=== PATIENT | female | born 1970 | race Native Hawaiian/Other Pacific Islander ===

== ENCOUNTER 2022-09-23 22:30 | Emergency (ER) | payer OTHER ==
[~2022-09-23] VITALS: Ht 154.9 cm; Wt 64.4 kg
[2022-09-23 22:30] VITALS: BP 111/54; TEMP 98.7
[2022-09-24 00:53] LABS: PLATELET COUNT 167 K/uL (152-353)
[2022-09-24] MEDS ORDERED: OXYB5TAB64 PO (10:32)
[2022-09-24] MEDS ORDERED: ZYPREXA ZYDI10 MG PO (10:34)
[2022-09-24] MEDS ORDERED: APIX1TAB PO (10:35)
[2022-09-24] MEDS ORDERED: KEPPRA1000 MG PO (10:36)
[2022-09-24] MEDS ORDERED: LAMICTAL200 MG PO (10:37)
[2022-09-24] MEDS ORDERED: NITR100C56 PO (10:38)
[2022-09-24] MEDS ORDERED: TOPAMAX200 MG PO (10:39)
[2022-09-24] MEDS ORDERED: HALO5INJ3 IM (10:40)
[2022-09-24] MEDS ORDERED: HYDR5TAB9 PO (10:43)
[2022-09-24] MEDS ORDERED: TYLENOL325 MG PO (10:44)
[2022-09-24] MEDS ORDERED: APTIOM200 MG PO (10:46)
[2022-09-24] MEDS ORDERED: MIRTAZAPINE7.5 MG PO (10:47)
[2022-09-24] MEDS ORDERED: FLUOXETINE20 MG PO (10:47)
== END 2022-09-24 01:15 | disposition still patient (30) ==
LOC: ED 22:30
PROVIDERS: Emergency Medicine
DX: R46.89 Other symptoms and signs involving appearance and behavior (principal); Z11.52 Encounter for screening for COVID-19; Z04.6 Encounter for general psychiatric examination, requested by authority
CPT/HCPCS: 36415; 80053; 85027; 87635; 93005; 99283; J2060; U0003